=== PATIENT | male | born 1980 | race Caucasian/White ===

== ENCOUNTER 2021-01-14 10:29 | Emergency (ER) | payer SELFPAY ==
[~2021-01-14] VITALS: Ht 180 cm; Wt 81.6 kg
[~2021-01-14 10:29] MED LIST: TRM50T PO
--- NOTE | 2021-01-14 10:53 | ED Cardiac General ---
History of Present Illness General Chief Complaint: Cardiac/General Problems Stated Complaint: HIGH BP Nursing Triage Note: SENT OVER FROM [employer] D/T BP BEING HIGH Source: patient Exam Limitations: no limitations History of Present Illness Date Seen by Provider: Jan 14, 2021 Time Seen by Provider: 10:32 Initial Comments 40yoM with no significant PMH coming in due to an elevated BP. 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 Denies any symptoms at all including no chest pain, shortness of breath, abdominal pain, nausea, vomiting, diarrhea, fever, chills, weakness, numbness, vision changes, headaches, rash, or any other concerns. Does not have a primary care provider because he currently does not have insurance, and is hoping he will have insurance soon. Allergies and Home Medications Allergies Coded Allergies: No Known Drug Allergies (Unverified Allergy, Mild, 09/25/08) Patient Home Medication List Home Medication List Reviewed: Yes Amlodipine Besylate (Amlodipine Besylate) 5 Mg Tablet, 5 MG PO DAILY Prescribed by: LARISSA SULLIVAN on 01/14/21 1107 Tramadol Hcl (Ultram) 50 Mg Tablet, 1 TAB PO QID Prescribed by: STALIN ERICKSON on 09/25/08 6389 Review of Systems Review of Systems Constitutional: No chills, No fever EENTM: No Blurred Vision Respiratory: Denies Cough, Denies Shortness of Air Cardiovascular: Denies Chest Pain Gastrointestinal: Denies Abdominal Pain, Denies Constipated, Denies Diarrhea, Denies Nausea, Denies Vomiting Genitourinary: Denies Burning Musculoskeletal: no symptoms reported Skin: no symptoms reported Psychiatric/Neurological: No Symptoms Reported Endocrine: No Symptoms Reported Hematologic/Lymphatic: No Symptoms Reported All Other Systems Reviewed Negative Unless Noted: Yes Past Jcuyhks-Royesz-Lqymkn Hx Patient Social History Tobacco Use?: No Use of E-Cig and/or Vaping dev: Yes Substance use?: No Alcohol Use?: Yes Past Medical History Surgeries: No Physical Exam Vital Signs Vital Signs - First Documented 01/14/21 10:46 Temp 36.0 Pulse 111 Resp 16 B/P (MAP) 147/109 (122) Pulse Ox 98 Capillary Refill : Less Than 3 Seconds Height, Weight, BMI Height: '" Weight: lbs. oz. kg; 25.00 BMI Method: General Appearance: No Apparent Distress, WD/WN HEENT: PERRL/EOMI, Normal ENT Inspection, Pharynx Normal Neck: Full Range of Motion, Normal Inspection, Non Tender, Supple Respiratory: Chest Non Tender, Lungs Clear, Normal Breath Sounds, No Accessory Muscle Use, No Respiratory Distress Cardiovascular: Regular Rate, Rhythm, No Edema, Normal Peripheral Pulses Gastrointestinal: Normal Bowel Sounds, Non Tender, Soft; No Distended, No Guarding Extremity: Normal Capillary Refill, Normal Inspection, Normal Range of Motion, Non Tender, No Calf Tenderness, No Pedal Edema Neurologic/Psychiatric: Alert, No Motor/Sensory Deficits, Normal Mood/Affect Skin: Normal Color, Warm/Dry Lymphatic: No Adenopathy Progress/Results/Core Measures Results/Orders My Orders Orders - LARISSA SULLIVAN MD Ekg Tracing (01/14/21 11:03) Vital Signs/I&O 01/14/21 10:46 Temp 36.0 Pulse 111 Resp 16 B/P (MAP) 147/109 (122) Pulse Ox 98 Blood Pressure Mean: 122 Progress Progress Note : Progress Note 40-year-old male with above history coming in due to elevated blood pressure referred from occupational health. Patient says he was very nervous during that time his heart rate typically goes up. He was reportedly around 130 heart rate there, here he is right at 100. He says he still is nervous. No lack of p.o. intake and he has been tolerating everything well. Denying any symptoms at all so this is essentially asymptomatic hypertension. He does have a PCP so I will start him on some medications until he gets follow-up. I recommended [facility] given he does not have insurance. EKG without any acute ischemic changes. I believe he is stable for discharge with outpatient follow-up. He was sent home with strict return precautions peer Initial ECG Impression Date: Jan 14, 2021 Initial ECG Impression Time: 11:27 Initial ECG Rate: 88 Initial ECG Rhythm: Normal Sinus Comment Narrow QRS, borderline left axis deviation, no significant ST changes or T wave abnormalities Departure Impression Primary Impression: Asymptomatic hypertension Disposition: HOME, SELF-CARE Condition: Stable Departure-Patient Inst. Decision time for Depature: 11:15 Referrals: NO,LOCAL PHYSICIAN (PCP/Family) Primary Care Physician Patient Instructions: High Blood Pressure (DC) Add. Discharge Instructions: Please call [facility] and schedule an appointment, you do not have to have insurance to see them. I will start you on a blood pressure medicine that is low dose until you are able to follow-up. Symptoms are pretty low on this so it is typically pretty well-tolerated. Some people have some lower extremity swelling, so if you do have this you can stop it. I recommend you purchase a blood pressure cuff as well and take your blood pressure at least daily and write these numbers down. Do not fixate on these numbers, is just something you can take your primary care doctor so they can trend it. As always, if you have any chest pain, shortness of breath, weakness or numbness on one side of your body, worst headache of your life, or any other concerns then please come back t o the ER. Scripts Amlodipine Besylate (Amlodipine Besylate) 5 Mg Tablet 5 MG PO DAILY for 30 Days, #30 TAB Prov: LARISSA SULLIVAN MD 01/14/21 LARISSA SULLIVAN MD Jan 14, 2021 10:53
[2021-01-14] MEDS ORDERED: AMLO-250 PO (11:07)
[2021-01-14 11:45] VITALS: BP 138/103
== END 2021-01-14 11:47 | disposition home or self-care (01) ==
LOC: EDUNIT# 10:29 → ER 10:31
DX: I10 Essential (primary) hypertension (principal)
CPT/HCPCS: 93005

== ENCOUNTER 2022-06-26 12:04 | Emergency (ER) | payer SELFPAY ==
[~2022-06-26] VITALS: Ht 180 cm; Wt 90.0 kg
[~2022-06-26 12:04] MED LIST changes: +AMLO-250 PO
[2022-06-26] MEDS ORDERED: NS IV 1000 ML 1,000 ML IV STA (12:12)
[2022-06-26] MEDS ORDERED: KETOROLAC 30 MG/ML VIAL IVP ONE ×2 (12:15→13:30)
[2022-06-26] MEDS ORDERED: fentaNYL INJ 100 MCG/2 ML AMP IVP STA (12:16)
--- NOTE | 2022-06-26 12:21 | ED Abdominal Pain ---
General Chief Complaint: Abdominal/GI Problems Stated Complaint: ABDOMINAL PAIN Nursing Triage Note: ARRIVED VIA AMB TO ROOM 07 WITH RLQ PAIN THAT STARTED AT APPX 0400. Source of Information: Patient Exam Limitations: No Limitations (LARISSA OCAMPO) History of Present Illness Date Seen by Provider: June 26, 2022 Time Seen by Provider: 12:18 Initial Comments Patient is a 41-year-old male who presents ED with right-sided abdominal pain. Pain started around 4:00 this morning. Initially pain was sharp and has remained constant since this morning. Pain radiates to the right lower quadrant. Does have a pain to the right flank. Patient with associated chills. Did vomited 1 time as well as 1 loose stool. No history of previous abdominal surgery. Did drink some alcohol last night but denies of any alcohol today. Denies history of alcohol abuse. Normal urination without dysuria, hematuria, increased urine frequency. Denies chest pain, cough or shortness of breath. Patient denies fever, headache, dizziness, sore throat, ear pain, visual changes (LARISSA OCAMPO) Allergies and Home Medications Allergies Coded Allergies: No Known Drug Allergies (Unverified , 09/25/08) Patient Home Medication List Home Medication List Reviewed: Yes (LARISSA OCAMPO) Amlodipine Besylate (Amlodipine Besylate) 5 Mg Tablet, 5 MG PO DAILY Prescribed by: LARISSA SULLIVAN on 01/14/21 1107 Amoxicillin/Potassium Clav (Amox Tr-K Clv 875-125 mg Tab) 875 Mg-125 Mg Tablet, 1 EACH PO BID Prescribed by: FORTINO COLEMAN on 06/26/22 1328 Ondansetron (Ondansetron Odt) 4 Mg Tab.rapdis, 4 MG SL Q4H PRN for NAUSEA/VOMITING Prescribed by: FORTINO COLEMAN on 06/26/22 1328 Tramadol Hcl (Ultram) 50 Mg Tablet, 1 TAB PO QID Prescribed by: STALIN ERICKSON on 09/25/08 2029 Review of Systems Review of Systems Constitutional: No chills, No diaphoresis; malaise, weakness EENTM: No Double Vision, No Eye Pain Respiratory: Denies Cough Cardiovascular: Denies Chest Pain Gastrointestinal: Abdominal Pain, Diarrhea, Nausea, Vomiting Genitourinary: Denies Burning, Denies Discharge, Denies Drainage, Denies Frequency Musculoskeletal: back pain Skin: No change in color, No change in hair/nails (LARISSA OCAMPO) All Other Systems Reviewed Negative Unless Noted: Yes (LARISSA OCAMPO) Past Ehnlped-Orjbvq-Uqldmk Hx Immunizations Up To Date First/Initial COVID19 Vaccinat: APRIL 2020 Second COVID19 Vaccination Stefan: APRIL 2020 (LARISSA OCAMPO) Past Medical History Surgeries: No (LARISSA OCAMPO) Physical Exam Vital Signs Vital Signs - First Documented 06/26/22 12:10 Temp 35.6 Pulse 92 Resp 16 B/P (MAP) 143/102 (116) Pulse Ox 100 O2 Delivery Room Air (AGUSTÍN ISABEL MD) Vital Signs Capillary Refill : Less Than 3 Seconds (LARISSA OCAMPO) Height/Weight/BMI Height: '" Weight: lbs. oz. kg; 27.00 BMI Method: General Appearance: WD/WN, no apparent distress HEENT: PERRL/EOMI, normal ENT inspection, TMs normal, pharynx normal Neck: non-tender, full range of motion, supple Respiratory: chest non-tender, lungs clear, normal breath sounds, no respiratory distress, no accessory muscle use Cardiovascular: regular rate, rhythm, no edema, no gallop, no JVD Gastrointestinal: normal bowel sounds, soft, no organomegaly, tenderness (Right lower quadrant tenderness. Positive psoas sign. 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, no motor/sensory deficits, alert, normal mood/affect, oriented x 3 Skin: normal color, warm/dry (LARISSA OCAMPO) Progress/Results/Core Measures Results/Orders Lab Results Laboratory Tests Test 06/26/22 12:25 06/26/22 13:18 Range/Units White Blood Count 20.0 H 4.3-11.0 10^3/uL Red Blood Count 5.03 4.30-5.52 10^6/uL Hemoglobin 15.2 13.3-17.7 g/dL Hematocrit 43 40-54 % Mean Corpuscular Volume 85 80-99 fL Mean Corpuscular Hemoglobin 30 25-34 pg Mean Corpuscular Hemoglobin Concent 35 32-36 g/dL Red Cell Distribution Width 12.9 10.0-14.5 % Platelet Count 362 130-400 10^3/uL Mean Platelet Volume 10.5 9.0-12.2 fL Immature Granulocyte % (Auto) 0 % Neutrophils (%) (Auto) 85 H 42-75 % Lymphocytes (%) (Auto) 8 L 12-44 % Monocytes (%) (Auto) 6 0-12 % Eosinophils (%) (Auto) 0 0-10 % Basophils (%) (Auto) 0 0-10 % Neutrophils # (Auto) 17.0 H 1.8-7.8 10^3/uL Lymphocytes # (Auto) 1.7 1.0-4.0 10^3/uL Monocytes # (Auto) 1.2 H 0.0-1.0 10^3/uL Eosinophils # (Auto) 0.0 0.0-0.3 10^3/uL Basophils # (Auto) 0.1 0.0-0.1 10^3/uL Immature Granulocyte # (Auto) 0.1 0.0-0.1 10^3/uL Neutrophils % (Manual) 80 % Lymphocytes % (Manual) 13 % Monocytes % (Manual) 7 % Platelet Estimate ADEQUATE Blood Morphology Comment NORMAL Sodium Level 139 135-145 MMOL/L Potassium Level 3.8 3.6-5.0 MMOL/L Chloride Level 103 98-107 MMOL/L Carbon Dioxide Level 22 21-32 MMOL/L Anion Gap 14 5-14 MMOL/L Blood Urea Nitrogen 12 7-18 MG/DL Creatinine 0.94 0.60-1.30 MG/DL Estimat Glomerular Filtration Rate 105 BUN/Creatinine Ratio 13 Glucose Level 119 H 70-105 MG/DL Calcium Level 9.8 8.5-10.1 MG/DL Corrected Calcium 8.5-10.1 MG/DL Total Bilirubin 1.1 H 0.1-1.0 MG/DL Aspartate Amino Transf (AST/SGOT) 22 5-34 U/L Alanine Aminotransferase (ALT/SGPT) 33 0-55 U/L Alkaline Phosphatase 71 40-136 U/L Total Protein 7.5 6.4-8.2 GM/DL Albumin 4.6 H 3.2-4.5 GM/DL Lipase 25 8-78 U/L Urine Color YELLOW Urine Clarity CLEAR Urine pH 8.5 5-9 Urine Specific [place] 1.010 L 1.016-1.022 Urine Protein NEGATIVE NEGATIVE Urine Glucose (UA) NEGATIVE NEGATIVE Urine Ketones TRACE H NEGATIVE Urine Nitrite NEGATIVE NEGATIVE Urine Bilirubin NEGATIVE NEGATIVE Urine Urobilinogen 0.2 < = 1.0 MG/DL Urine Leukocyte Esterase NEGATIVE NEGATIVE Urine RBC (Auto) NEGATIVE NEGATIVE Urine RBC RARE /HPF Urine WBC NONE /HPF Urine Crystals NONE /LPF Urine Bacteria NEGATIVE /HPF Urine Casts NONE /LPF Urine Mucus NEGATIVE /LPF Urine Culture Indicated NO (AGUSTÍN ISABEL MD) Vital Signs/I&O 06/26/22 06/26/22 12:10 14:09 Temp 35.6 Pulse 92 94 Resp 16 16 B/P (MAP) 143/102 (116) 159/98 Pulse Ox 100 97 O2 Delivery Room Air Room Air (AGUSTÍN ISABEL MD) Blood Pressure Mean: 116 Departure Communication (PCP) Reviewed previous ER visits, H&P, lab testing. acute onset of right-sided abdominal pain around 4:00 this morning. Started in the right upper quadrant radiate to the right lower quadrant with some pain in the right flank. No history of previous abdominal surgery. Patient diaphoretic on arrival. Tenderness to the right side of his abdomen, worse to the right lower quadrant. CBC, CMP, lipase, urinalysis was ordered. Differential diagnosis of appendicitis, nephrolithiasis, urolithiasis, cystitis, colitis. Denies of any scrotum pain, scrotum swelling or urinary symptoms. Started on a liter of fluid and was given IV fentanyl 50 mcg. Patient urinalysis was negative for infection. Patient white blood count 20. Chemistry unremarkable. Due to location of pain CT abdomen and pelvis was ordered to rule out any surgical abdomen such as appendicitis. CT abdomen pelvis shows mesenteric adenitis. No evidence of appendicitis. Unusual at his age to have mesenteric adenitis. Other potential concerns would be early appendicitis however no evidence at this time on imaging. Due to elevated white blood count and patient pain will discharge with Augmentin prophylactically to cover a early appendicitis. Discussed with patient that antibiotics are given for appendicitis and can resolve symptoms. Did reassess the abdomen with improvement of pain. He felt like the pain was more in his right upper quadrant at discharge There is no evidence of nephrolithiasis or ureterolithiasis. No chest pain or shortness of breath. Symptoms appear to be improving. States he is able to rest comfortably at this time. Recommend Tylenol or ibuprofen at home. I do not want to give narcotics to mask pain. Discussed liquid diet for the next 2 or 3 days. Did have some vomiting and diarrhea today which may suggest a GI process. Denies eating anything differently. No recent travels. Denies of any recent antibiotic use. No history inflammatory bowel disease. Patient symptoms continue improved. Discharge with outpatient follow-up with primary care physician in 2 days. If worsening pain in the right lower quadrant, fever, vomiting to return back to ED. (LARISSA OCAMPO) Impression Primary Impression: Mesenteric adenitis Disposition: HOME, SELF-CARE Condition: Stable Departure-Patient Inst. Decision time for Depature: 13:26 (LARISSA OCAMPO) Referrals: [facility]/BRAYDON COFFEY MD NO,LOCAL PHYSICIAN (PCP) Primary Care Physician Patient Instructions: Mesenteric Lymphadenitis Add. Discharge Instructions: Will discharge with Augmentin for a potential early appendicitis. Recommend taking probiotics [id number] to prevent any other associated GI infection. Zofran for nausea. If increasing pain, fever, vomiting need to return back to ED. Follow-up with your PCP in 2 days for reevaluation. Tylenol or ibuprofen for pain All discharge instructions reviewed with patient and/or family. Voiced understanding. Scripts Ondansetron (Ondansetron Odt) 4 Mg Tab.rapdis 4 MG SL Q4H PRN for NAUSEA/VOMITING, #6 TAB Prov: LARISSA OCAMPO 06/26/22 Amoxicillin/Potassium Clav (Amox Tr-K Clv 875-125 mg Tab) 875 Mg-125 Mg Tablet 1 EACH PO BID for 7 Days, #14 TAB Prov: LARISSA OCAMPO 06/26/22 ATTENDING PHYSICIAN NOTE: I was physically present as attending physician in the emergency department during the care of this patient, but I was not directly involved in the decision making or delivery of care for this patient. (AGUSTÍN ISABEL MD) LARISSA OCAMPO June 26, 2022 12:21 AGUSTÍN ISABEL MD June 27, 2022 08:57
[2022-06-26 12:36] LABS: BASOPHILS # (AUTO) 0.1 10^3/uL (0.0-0.1); BASOPHILS % (AUTO) 0 % (0-10); EOSINOPHILS % (AUTO) 0 % (0-10); HEMATOCRIT 43 % (40-54); HEMOGLOBIN 15.2 g/dL (13.3-17.7); LYMPHOCYTES # (AUTO) 1.7 10^3/uL (1.0-4.0); LYMPHOCYTES % (AUTO) 8 % (12-44); MEAN CORPUSCULAR HEMOGLOBIN 30 pg (25-34); MEAN CORPUSCULAR HGB CONC 35 g/dL (32-36); MEAN CORPUSCULAR VOLUME 85 fL (80-99); MEAN PLATELET VOLUME 10.5 fL (9.0-12.2); MONOCYTES # (AUTO) 1.2 10^3/uL (0.0-1.0); MONOCYTES % (AUTO) 6 % (0-12); NEUTROPHILS % (AUTO) 85 % (42-75); PLATELET COUNT 362 10^3/uL (130-400)
[2022-06-26 12:42] LABS: ALBUMIN 4.6 GM/DL (3.2-4.5); CHLORIDE 103 MMOL/L (98-107); POTASSIUM 3.8 MMOL/L (3.6-5.0); SODIUM 139 MMOL/L (135-145)
[2022-06-26 12:44] LABS: CALCIUM 9.8 MG/DL (8.5-10.1)
[2022-06-26 12:45] LABS: GLUCOSE 119 MG/DL (70-105); TOTAL PROTEIN 7.5 GM/DL (6.4-8.2)
[2022-06-26] MEDS ORDERED: HOLD METFORMIN - RECEIVED CONTRAST 20 ML VIAL IV SCH (12:45)
[2022-06-26] MEDS ORDERED: IOHEXOL 350 MG/ML 100 ML (OMNIPAQUE 350) VIAL IV ONE (12:45)
[2022-06-26] MEDS ORDERED: NS 100 ML (IVPB) BAG IV ONE (12:45)
[2022-06-26 12:46] LABS: CARBON DIOXIDE 22 MMOL/L (21-32)
[2022-06-26 12:47] LABS: BILIRUBIN,TOTAL 1.1 MG/DL (0.1-1.0); LYMPHOCYTES % (MANUAL) 13 %; MONOCYTES % (MANUAL) 7 %; NEUTROPHILS % (MANUAL) 80 %; PLATELET ESTIMATE ADEQUATE; RBC MORPH NORMAL
[2022-06-26 12:48] LABS: ALKALINE PHOSPHATASE 71 U/L (40-136); CREATININE SERUM 0.94 MG/DL (0.60-1.30); GFR ESTIMATED 105
[2022-06-26 12:49] LABS: BUN/CREATININE RATIO 13
[2022-06-26 12:51] LABS: ALANINE AMINOTRANSFERASE 33 U/L (0-55)
[2022-06-26 12:52] LABS: LIPASE 25 U/L (8-78)
--- NOTE | 2022-06-26 13:12 | Diagnostic Imaging Report ---
PROCEDURE: CT abdomen and pelvis with contrast, rule out appendicitis. TECHNIQUE: Multiple contiguous axial images were obtained through the abdomen and pelvis after the administration of intravenous contrast. All CT scans use one or more of the following dose optimizing techniques: automated exposure control, MA and/or KvP adjustment based on patient size and exam type or iterative reconstruction. INDICATION: Right lower quadrant pain. FINDINGS: The heart size is normal. The lung bases are clear. There appears to be some mild fatty infiltration of the liver. Gallbladder is unremarkable. No biliary duct dilatation. Spleen is normal. The pancreas and adrenal glands are unremarkable. Kidneys normal in appearance. Aorta is nonaneurysmal. The bowel gas pattern is nonspecific. The appendix appears to be mildly enlarged but patent. There are some shoddy adenopathy in the right lower quadrant. There is no free air. There is no ascites. There are no focal inflammatory changes. Bladder is normal. There is no pelvic mass, adenopathy or free fluid. There is some degenerative disc disease at L5-S1. IMPRESSION: Scattered mildly enlarged lymph nodes in the right lower quadrant possibly reflecting mesenteric adenitis. There is no definitive CT evidence of appendicitis. Mild fatty infiltration of the liver. Degenerative disc disease at L5-S1 No other acute abnormality in the abdomen or pelvis. Dictated by: Dictated on workstation # [id number]
[2022-06-26] MEDS ORDERED: AMOX1TAB12 PO (13:28)
[2022-06-26] MEDS ORDERED: ONDA4TAB11 SL (13:28)
[2022-06-26 13:33] LABS: BILIRUBIN,URINE NEGATIVE (NEGATIVE); CLARITY,URINE CLEAR; COLOR,URINE YELLOW; GLUCOSE, URINE (UA) NEGATIVE (NEGATIVE); KETONES,URINE TRACE (NEGATIVE); LEUKOCYTE ESTERASE ,URINE NEGATIVE (NEGATIVE); NITRITE,URINE NEGATIVE (NEGATIVE); PH,URINE 8.5 (5-9); PROTEIN,URINE NEGATIVE (NEGATIVE)
[2022-06-26 13:49] LABS: BACTERIA,URINE NEGATIVE /HPF; RBC,URINE RARE /HPF
[2022-06-26 14:09] VITALS: BP 159/98
[2022-06-27] MEDS ORDERED: HYDR-3817 PO (21:43)
== END 2022-06-26 14:09 | disposition home or self-care (01) ==
LOC: EDUNIT# 12:04 → ER 12:07
DX: I88.0 Nonspecific mesenteric lymphadenitis (principal)
CPT/HCPCS: 36415; 74177; 80053; 81000; 83690; 85007; 85027

== ENCOUNTER 2022-06-27 15:00 | Observation (INO) | payer SELFPAY ==
[~2022-06-27] VITALS: Ht 180 cm; Wt 89.3 kg
[~2022-06-27 15:00] MED LIST changes: +AMOX1TAB12 PO; +ONDA4TAB11 SL
[2022-06-27] MEDS ORDERED: fentaNYL INJ 100 MCG/2 ML AMP IVP ONE ×2 (15:15→16:45)
[2022-06-27] MEDS ORDERED: NS IV 1000 ML 1,000 ML IV SCH (15:15)
--- NOTE | 2022-06-27 15:15 | ED Abdominal Pain ---
General Chief Complaint: Abdominal/GI Problems Stated Complaint: ABDOMINAL PAIN Nursing Triage Note: PT STATES RLQ PAIN, WAS SEEN HERE YESTERDAY FOR THE SAME. WAS STARTED ON ABX. TYLENOL 5 HRS AGO NO OTHER PAIN MEDS, BM THIS MORNING, FEELS BLOATED Source of Information: Patient Exam Limitations: No Limitations History of Present Illness Date Seen by Provider: June 27, 2022 Time Seen by Provider: 15:07 Initial Comments 41-year-old male presents to the ER with complaints of right lower quadrant abdominal pain. He was seen yesterday for same complaint. He states that today the pain is worse than yesterday. He states the pain is mostly in the right lower quadrant, but radiates to the right upper quadrant and left lower quadrant. He reports subjective fevers and chills. States he was nauseated yesterday, denies any nausea today. Denies diarrhea, states he last had a small bowel movement this morning. Denies dysuria and hematuria. He was started on Augmentin for the possible beginning of appendicitis. Patient states he did start this. He was also prescribed Zofran, states he has not had to take any today. He denies any past abdominal surgeries. Allergies and Home Medications Allergies Coded Allergies: No Known Drug Allergies (Unverified , 09/25/08) Patient Home Medication List Home Medication List Reviewed: Yes Amlodipine Besylate (Amlodipine Besylate) 5 Mg Tablet, 5 MG PO DAILY Prescribed by: LARISSA SULLIVAN on 01/14/21 1107 Amoxicillin/Potassium Clav (Amox Tr-K Clv 875-125 mg Tab) 875 Mg-125 Mg Tablet, 1 EACH PO BID Prescribed by: FORTINO COLEMAN on 06/26/22 1328 Ondansetron (Ondansetron Odt) 4 Mg Tab.rapdis, 4 MG SL Q4H PRN for N AUSEA/VOMITING Prescribed by: FORTINO COLEMAN on 06/26/22 1328 Tramadol Hcl (Ultram) 50 Mg Tablet, 1 TAB PO QID Prescribed by: STALIN ERICKSON on 09/25/08 0181 Review of Systems Review of Systems Constitutional: see HPI Past Nqsrwzt-Buoadq-Mifdso Hx Patient Social History Tobacco Use?: No Use of E-Cig and/or Vaping dev: Yes E-Cig or Vaping type used: Nicotine Substance use?: No Alcohol Use?: Yes Immunizations Up To Date First/Initial COVID19 Vaccinat: APRIL 2020 Second COVID19 Vaccination Stefan: YES Past Medical History Surgery/Hospitalization HX: LT KNEE WITH HARDWARE Surgeries: No Physical Exam Vital Signs Vital Signs - First Documented 06/27/22 15:06 Temp 36.9 Pulse 95 Resp 22 B/P (MAP) 110/89 (96) Pulse Ox 100 O2 Delivery Room Air Capillary Refill : Less Than 3 Seconds Height/Weight/BMI Height: '" Weight: lbs. oz. kg; 27.00 BMI Method: General Appearance: WD/WN, no apparent distress Neck: supple, normal inspection Respiratory: lungs clear Cardiovascular: regular rate, rhythm Gastrointestinal: normal bowel sounds, distended, guarding, tenderness (Severe tenderness right lower quadrant, palpation of left lower quadrant causes pain in right lower quadrant) Extremities: normal inspection Neurologic/Psychiatric: alert, normal mood/affect Skin: normal color, warm/dry Progress/Results/Core Measures Results/Orders Lab Results Laboratory Tests Test 06/27/22 15:09 Range/Units White Blood Count 21.2 H 4.3-11.0 10^3/uL Red Blood Count 4.73 4.30-5.52 10^6/uL Hemoglobin 14.3 13.3-17.7 g/dL Hematocrit 42 40-54 % Mean Corpuscular Volume 89 80-99 fL Mean Corpuscular Hemoglobin 30 25-34 pg Mean Corpuscular Hemoglobin Concent 34 32-36 g/dL Red Cell Distribution Width 13.2 10.0-14.5 % Platelet Count 349 130-400 10^3/uL Mean Platelet Volume 10.5 9.0-12.2 fL Immature Granulocyte % (Auto) 0 % Neutrophils (%) (Auto) 88 H 42-75 % Lymphocytes (%) (Auto) 8 L 12-44 % Monocytes (%) (Auto) 4 0-12 % Eosinophils (%) (Auto) 0 0-10 % Basophils (%) (Auto) 0 0-10 % Neutrophils # (Auto) 18.7 H 1.8-7.8 X 10^3 Lymphocytes # (Auto) 1.6 1.0-4.0 X 10^3 Monocytes # (Auto) 0.9 0.0-1.0 X 10^3 Eosinophils # (Auto) 0.0 0.0-0.3 10^3/uL Basophils # (Auto) 0.0 0.0-0.1 10^3/uL Immature Granulocyte # (Auto) 0.0 0.0-0.1 10^3/uL Neutrophils % (Manual) 88 % Lymphocytes % (Manual) 4 % Monocytes % (Manual) 3 % Reactive Lymphocytes 5 % Blood Morphology Comment NORMAL Sodium Level 138 135-145 MMOL/L Potassium Level 3.7 3.6-5.0 MMOL/L Chloride Level 103 98-107 MMOL/L Carbon Dioxide Level 20 L 21-32 MMOL/L Anion Gap 15 H 5-14 MMOL/L Blood Urea Nitrogen 9 7-18 MG/DL Creatinine 0.95 0.60-1.30 MG/DL Estimat Glomerular Filtration Rate 104 BUN/Creatinine Ratio 9 Glucose Level 131 H 70-105 MG/DL Calcium Level 9.7 8.5-10.1 MG/DL Corrected Calcium 9.3 8.5-10.1 MG/DL Total Bilirubin 1.0 0.1-1.0 MG/DL Aspartate Amino Transf (AST/SGOT) 16 5-34 U/L Alanine Aminotransferase (ALT/SGPT) 25 0-55 U/L Alkaline Phosphatase 77 40-136 U/L C-Reactive Protein High Sensitivity 33.84 H 0.00-0.50 MG/DL Total Protein 7.7 6.4-8.2 GM/DL Albumin 4.5 3.2-4.5 GM/DL Amylase Level 33 25-125 U/L Lipase 20 8-78 U/L My Orders Orders - DEANNA EUBANKS APRN Comprehensive Metabolic Panel (06/27/22 15:07) Lipase (06/27/22 15:07) Amylase (06/27/22 15:07) Ua Culture If Indicated (06/27/22 15:07) Cbc With Automated Diff (06/27/22 15:07) Hs C Reactive Protein (06/27/22 15:07) Ed Iv/Invasive Line Start (06/27/22 15:08) Ns Iv 1000 Ml (Sodium Chloride 0.9%) (06/27/22 15:15) Fentanyl Inj (Sublimaze Injection) (06/27/22 15:15) Manual Differential (06/27/22 15:09) Ct Abd/Pelv W (Appendicitis) (06/27/22 15:46) Iohexol Injection (Omnipaque 350 Mg/Ml 1 (06/27/22 16:15) Received Contrast (Hold Metformin- Contr (06/27/22 16:15) Ns (Ivpb) (Sodium Chloride 0.9% Ivpb Bag (06/27/22 16:15) Fentanyl Inj (Sublimaze Injection) (06/27/22 16:45) Hydromorphone Injection (Dilaudid Inject (06/27/22 17:30) Piperacillin Sodium/Tazobactam (Zosyn Vi (06/27/22 17:30) Ed Admission (Communication) (06/27/22 17:29) Medications Given in ED Current Medications Medications Dose Ordered Sig/Marlys Route Start Time Stop Time Status Last Admin Dose Admin Fentanyl Citrate 50 mcg ONCE ONCE IVP 06/27/22 15:15 06/27/22 15:16 DC 06/27/22 15:20 50 MCG Fentanyl Citrate 50 mcg ONCE ONCE IVP 06/27/22 16:45 06/27/22 16:46 DC 06/27/22 16:36 50 MCG Hydromorphone HCl 0.5 mg ONCE ONCE IV 06/27/22 17:30 06/27/22 17:31 DC 06/27/22 17:33 0.5 MG Iohexol 100 ml ONCE ONCE IV 06/27/22 16:15 06/27/22 16:16 DC 06/27/22 16:07 80 ML Piperacillin Sod/ Tazobactam Sod 4.5 gm/Sodium Chloride 100 ml @ 200 mls/hr ONCE ONCE IV 06/27/22 17:30 06/27/22 17:59 DC 06/27/22 17:46 200 MLS/HR Sodium Chloride 100 ml ONCE ONCE IV 06/27/22 16:15 06/27/22 16:16 DC 06/27/22 16:08 80 ML Vital Signs/I&O 06/27/22 06/27/22 06/27/22 06/27/22 15:06 15:43 16:31 17:49 Temp 36.9 Pulse 95 89 104 94 Resp 22 18 B/P (MAP) 110/89 (96) 107/82 (90) 114/89 (97) Pulse Ox 100 98 100 98 O2 Delivery Room Air Room Air Room Air Room Air Blood Pressure Mean: 96 Progress Progress Note : Progress Note Patient seen and evaluated, lying in bed, moderate distress. Based on exam and symptoms, work-up initiated including CBC, CMP, amylase, lipase, UA. IV fluids and fentanyl ordered. Patient had a CT scan yesterday, will hold off on rescanning him at this time. 1546 CBC shows elevated WBC 21.2, up from 20.0 yesterday. Neutrophil percentage elevated at 88 up from 85 yesterday. CMP shows slightly decreased CO2 20, slig htly elevated anion gap 15, glucose 131. CRP elevated at 33.84. CT abdomen pelvis ordered due to worsening labs. 1655 CT reviewed. It now shows appendicitis with associated appendicoliths, periapical appendiceal stranding, edema, and dilation of the appendix with new pelvic free fluid. Also a mild regional ileus, no batsheva obstruction. CT also shows left lower thoracic paraspinal mass. They recommend a formal CT chest to evaluate this. The CT also shows fluid in the gallbladder that may be related to yesterday's contrast load. I called and spoke with Dr. Damian, surgery, regarding patient. He will admit patient and perform appendectomy tomorrow afternoon. He would like patient to be on clear liquids until 7 AM then n.p.o. He would like PRN pain medications as well as antibiotics. Bridge orders were placed. Patient has been unable to provide urine sample in the ER. I also spoke with Dr. Damian about the paraspinal mass, he wanted a CT of the chest with and without contrast, but will defer due to patient having to CTs with contrast over the last 2 days. Diagnostic Imaging Diagonstic Imaging: CT Plain Films/CT/US/NM/MRI: abdomen, pelvis Comments [facility], [facility]. [place], [place] NAME: FABIAN CHAVARRIA [facility] REC#: [id number] PT STATUS: REG ER : 1980 PHYSICIAN: DEANNA EUBANKS APRN ADMIT DATE: 06/27/22/ER Signed Date of Exam:06/27/22 CT ABD/PELV W (APPENDICITIS) PROCEDURE: CT abdomen and pelvis with contrast, rule out appendicitis. TECHNIQUE: Multiple contiguous axial images were obtained through the abdomen and pelvis after the administration of intravenous contrast. All CT scans use one or more of the following dose optimizing techniques: automated exposure control, MA and/or KvP adjustment based on patient size and exam type or iterative reconstruction. INDICATION: Right lower quadrant pain. COMPARISON: Exam of one day prior. FINDINGS: The appendix arises off the anterior right lateral wall of the cecum, distally. It is directed posterolaterally and inferiorly and has intraluminal hyperdensities consistent with appendicoliths. The appendix is now dilated with stranding and edema of the periappendiceal fat and the appearance is most consistent with acute appendicitis. Outer wall to outer wall diameter maximal 14 mm. There is no free air. There is a small amount of pelvic free fluid having developed, greatest in the right lower quadrant. No abscess or drainable collection. The right lower quadrant small bowel, fluid-containing and mildly ectatic, likely reflects a mild regional ileus. No overt obstruction and no free air. No acute biliary pathology, however, dependent hyperdensity within the gallbladder lumen forms and unsharp fluid fluid level. This is likely some residual vicarious excretion of contrast from yesterday's load as opposed to interval appearance of sludge. The adrenals and pancreas negative. The kidneys are unobstructed. There is no abdominopelvic, mesenteric or retroperitoneal adenopathy. The urinary bladder unremarkable. No acute or suspect bony pathology. At the top of the [id number] of the exam today and above the levels obtained on yesterday's CT we now note a somewhat lobulated hyperenhancing mass effect abutting the pleura and mediastinal interface left paraspinal and posterior to the aorta at the level of T8. This mass measures at least 3.3 x 2.0 cm transverse and is presumed to extend above the field of view. It is of uncertain etiology but warrants a formal chest CT as further evaluation to see its extent and entirety and to see if it involves the neural foramina or if there are other lesions present. IMPRESSION: 1. We now see convincing evidence of acute appendicitis with associated appendicoliths, periappendiceal stranding, edema and dilatation of the appendix with new pelvic free fluid. No abscess or loculated collection and there is no free intraperitoneal air. Mild regional ileus is noted but no batsheva obstruction. 2. Left lower thoracic paraspinal mass was above the field of view from yesterday's study and it is of uncertain etiology and significance. Formal chest CT recommended as further characterization. 3. Fluid fluid level in the gallbladder is believed incidental vicarious excretion of yesterday's contrast load. Dictated by: Dictated on workstation # [id number] Dict: 06/27/22 1613 Trans: 06/27/22 1705 PJE [id number] Interpreted by: RASHEL PATEL Electronically signed by: RASHEL PATEL 06/27/221704 Departure Impression Primary Impression: Appendicitis Qualified Codes: K35.80 - Unspecified acute appendicitis Additional Impression: Paraspinal mass Disposition: ADMITTED INPATIENT Condition: Stable Admissions Decision to Admit Reason: Admit from ER (General) Decision to Admit/Date: June 27, 2022 Time/Decision to Admit Time: 16:50 Departure-Patient Inst. Referrals: NO,LOCAL PHYSICIAN (PCP/Family) Primary Care Physician DEANNA EUBANKS APRN June 27, 2022 15:15
[2022-06-27 15:16] LABS: BASOPHILS % (AUTO) 0 % (0-10); EOSINOPHILS % (AUTO) 0 % (0-10); HEMATOCRIT 42 % (40-54); HEMOGLOBIN 14.3 g/dL (13.3-17.7); LYMPHOCYTES # (AUTO) 1.6 X 10^3 (1.0-4.0); LYMPHOCYTES % (AUTO) 8 % (12-44); MEAN CORPUSCULAR HEMOGLOBIN 30 pg (25-34); MEAN CORPUSCULAR HGB CONC 34 g/dL (32-36); MEAN CORPUSCULAR VOLUME 89 fL (80-99); MEAN PLATELET VOLUME 10.5 fL (9.0-12.2); MONOCYTES # (AUTO) 0.9 X 10^3 (0.0-1.0); MONOCYTES % (AUTO) 4 % (0-12); NEUTROPHILS # (AUTO) 18.7 X 10^3 (1.8-7.8); NEUTROPHILS % (AUTO) 88 % (42-75); PLATELET COUNT 349 10^3/uL (130-400); WHITE BLOOD COUNT 21.2 10^3/uL (4.3-11.0)
[2022-06-27 15:25] LABS: ALBUMIN 4.5 GM/DL (3.2-4.5); POTASSIUM 3.7 MMOL/L (3.6-5.0)
[2022-06-27 15:27] LABS: CALCIUM 9.7 MG/DL (8.5-10.1)
[2022-06-27 15:28] LABS: TOTAL PROTEIN 7.7 GM/DL (6.4-8.2)
[2022-06-27 15:32] LABS: CREATININE SERUM 0.95 MG/DL (0.60-1.30)
[2022-06-27 16:01] LABS: LYMPHOCYTES % (MANUAL) 4 %; MONOCYTES % (MANUAL) 3 %; NEUTROPHILS % (MANUAL) 88 %
[2022-06-27 16:02] LABS: RBC MORPH NORMAL; REACTIVE LYMPHOCYTES 5 %
[2022-06-27] MEDS ORDERED: NS 100 ML (IVPB) BAG IV ONE (16:15)
[2022-06-27] MEDS ORDERED: HOLD METFORMIN - RECEIVED CONTRAST 20 ML VIAL IV SCH (16:15)
[2022-06-27] MEDS ORDERED: IOHEXOL 350 MG/ML 100 ML (OMNIPAQUE 350) VIAL IV ONE (16:15)
--- NOTE | 2022-06-27 16:48 | Diagnostic Imaging Report ---
PROCEDURE: CT abdomen and pelvis with contrast, rule out appendicitis. TECHNIQUE: Multiple contiguous axial images were obtained through the abdomen and pelvis after the administration of intravenous contrast. All CT scans use one or more of the following dose optimizing techniques: automated exposure control, MA and/or KvP adjustment based on patient size and exam type or iterative reconstruction. INDICATION: Right lower quadrant pain. COMPARISON: Exam of one day prior. FINDINGS: The appendix arises off the anterior right lateral wall of the cecum, distally. It is directed posterolaterally and inferiorly and has intraluminal hyperdensities consistent with appendicoliths. The appendix is now dilated with stranding and edema of the periappendiceal fat and the appearance is most consistent with acute appendicitis. Outer wall to outer wall diameter maximal 14 mm. There is no free air. There is a small amount of pelvic free fluid having developed, greatest in the right lower quadrant. No abscess or drainable collection. The right lower quadrant small bowel, fluid-containing and mildly ectatic, likely reflects a mild regional ileus. No overt obstruction and no free air. No acute biliary pathology, however, dependent hyperdensity within the gallbladder lumen forms and unsharp fluid fluid level. This is likely some residual vicarious excretion of contrast from yesterday's load as opposed to interval appearance of sludge. The adrenals and pancreas negative. The kidneys are unobstructed. There is no abdominopelvic, mesenteric or retroperitoneal adenopathy. The urinary bladder unremarkable. No acute or suspect bony pathology. At the top of the [id number] of the exam today and above the levels obtained on yesterday's CT we now note a somewhat lobulated hyperenhancing mass effect abutting the pleura and mediastinal interface left paraspinal and posterior to the aorta at the level of T8. This mass measures at least 3.3 x 2.0 cm transverse and is presumed to extend above the field of view. It is of uncertain etiology but warrants a formal chest CT as further evaluation to see its extent and entirety and to see if it involves the neural foramina or if there are other lesions present. IMPRESSION: 1. We now see convincing evidence of acute appendicitis with associated appendicoliths, periappendiceal stranding, edema and dilatation of the appendix with new pelvic free fluid. No abscess or loculated collection and there is no free intraperitoneal air. Mild regional ileus is noted but no batsheva obstruction. 2. Left lower thoracic paraspinal mass was above the field of view from yesterday's study and it is of uncertain etiology and significance. Formal chest CT recommended as further characterization. 3. Fluid fluid level in the gallbladder is believed incidental vicarious excretion of yesterday's contrast load. Dictated by: Dictated on workstation # [id number]
[2022-06-27] MEDS ORDERED: PIPERACILLIN SODIUM/TAZOBACTAM 4.5 GM in NS (IVPB) 100 ML IV ONE (17:30)
[2022-06-27] MEDS ORDERED: HYDROmorphone 2 MG/ML VIAL (DILAUDID) IV ONE (17:30)
[2022-06-27] MEDS ORDERED: HYDROmorphone 2 MG/ML VIAL (DILAUDID) IV PRN ×2 (18:15→20:30)
[2022-06-27 18:25] VITALS: BP 139/95
[2022-06-27] MEDS ORDERED: fentaNYL INJ 100 MCG/2 ML AMP ONE (18:29)
[2022-06-27] MEDS: fentaNYL INJ 100 MCG/2 ML AMP IVP PRN ×3 (18:33→23:50)
[2022-06-27] MEDS: NS IV 1000 ML 1,000 ML IV SCH (18:33)
[2022-06-27] MEDS ORDERED: HYDROmorphone 2 MG/ML VIAL (DILAUDID) ONE (19:42)
[2022-06-27 19:46] VITALS: BP 138/95
[2022-06-27] MEDS ORDERED: ONDANSETRON 4 MG/2 ML (SDV) Z0FRAN ONE (19:52)
[2022-06-27] MEDS: ONDANSETRON 4 MG/2 ML (SDV) Z0FRAN IVP PRN (19:53)
[2022-06-27 20:00] VITALS: BP 131/89
[2022-06-27] MEDS ORDERED: HYDR-3817 PO (21:43)
--- NOTE | 2022-06-27 21:43 | Discharge Inst-Surgical ---
D/C Lap Instructions-BROOKE New, Converted, or Re-Newed RX: RX on Chart Follow Up Appt in 2 weeks Activity as tolerated No driving for 24 hours No driving while on pain medications Incentive Spirometry use every 2 hours while awake Regular Diet Symptoms to Report: Fever over 101 degree F, Nausea/Vomiting Infection Signs and Symptoms to report: Increased redness, Foul odor of wound, Increased drainage Bathing instructions: May shower Operative Area Clean/Dry; Keep incision clean/dry If any problems/questions: Contact your physician or go to Emergency Room BRAYDON COX MD June 27, 2022 21:43
--- NOTE | 2022-06-27 21:44 | Progress Note-Pre Operative ---
Pre-Operative Progress Note Date of Available H&P: June 27, 2022 Date H&P Reviewed: June 27, 2022 Time H&P Reviewed: 22:00 History & Physical: No changes noted Pre-Operative Diagnosis: acute appendicitis BRAYDON COX MD June 27, 2022 21:44
[2022-06-27] MEDS ORDERED: HYDROcodone/APAP 7.5 MG/325 MG (LORTAB, LORCET PLUS) TABLET PO PRN (21:45)
--- NOTE | 2022-06-27 22:26 | HISTORY AND PHYSICAL ---
The patient is a 41-year-old male who initially presented to the emergency department 1 day previous for right lower abdominal quadrant pain. CT scan was performed, which did not show any abnormalities and the working diagnosis was mesenteric adenopathy. He was started on Augmentin. He reports that the pain persisted and then worsened over time. He also had reported some nausea; however, no vomiting. He also reports that he may have had some mild fevers at home. On today's CT scan, there was inflammation of the appendix consistent with a noncomplicated appendicitis. PAST MEDICAL HISTORY: Hypertension. PAST SURGERIES: Left knee arthroscopy. ALLERGIES: NO KNOWN DRUG ALLERGIES. MEDICATIONS: Amlodipine 5 mg daily, Augmentin 875 mg b.i.d., Zofran p.r.n., tramadol 50 mg q.i.d. p.r.n. SOCIAL HISTORY: Positive smoke, positive alcohol. FAMILY HISTORY: Noncontributory. VITAL SIGNS: Temperature 36.9, blood pressure 110/89, pulse 95, respirations 20, pulse ox 100% on room air. REVIEW OF SYSTEMS: This is a well-nourished male, currently in no acute distress. He is not experiencing shortness of breath or difficulty breathing. No chest pain, palpitations, diaphoresis. Intermittent nausea, no vomiting. Does not report any change in bowel habits. No red blood per rectum, no dark tarry stools. Possible fever and chills at home. No recent inadvertent weight loss. All other review of systems negative. PHYSICAL EXAMINATION: Will be evaluated in the a.m. The majority of information was accrued by the emergency room physician as well as the patient's electronic medical records. LABORATORY DATA: WBC 21.2, hemoglobin 14.3, hematocrit 42, platelets 349. BUN 9, creatinine 0.95. ASSESSMENT AND PLAN: A 41-year-old male with a noncomplicated appendicitis. The natural history of this disease process will be explained to the patient as well as the need for diagnostic laparoscopy and appendectomy, which we will schedule on this admission. For now, we will continue with IV hydration as well as IV antibiotics and pain control as necessary. Job ID: [id number] DocumentID: [id number] Dictated Date: 06/27/2022 21:58:45 Sawmill Equipment Operator Date: 06/27/2022 22:24:00 Dictated By: BRAYDON COX MD
[2022-06-27] MEDS: PIPERACILLIN SODIUM/TAZOBACTAM 4.5 GM in NS (IVPB) 100 ML IV SCH (23:49)
[2022-06-28] VITALS (17 sets, daily range): BP systolic 114–147; BP diastolic 66–99
[2022-06-28] MEDS: NICOTINE 14 MG (NICODERM) PATCH TD SCH ×2 (00:23→07:34)
[2022-06-28] MEDS: HYDROmorphone 2 MG/ML VIAL (DILAUDID) IV PRN ×5 (01:46→21:24)
[2022-06-28] MEDS: fentaNYL INJ 100 MCG/2 ML AMP IVP PRN ×4 (04:00→17:20)
[2022-06-28] MEDS: NS IV 1000 ML 1,000 ML IV SCH ×3 (04:00→23:18)
[2022-06-28] MEDS: ONDANSETRON 4 MG/2 ML (SDV) Z0FRAN IVP PRN ×2 (05:04→07:33)
[2022-06-28 05:37] LABS: BASOPHILS % (AUTO) 0 % (0-10); EOSINOPHILS # (AUTO) 0.2 10^3/uL (0.0-0.3); EOSINOPHILS % (AUTO) 1 % (0-10); HEMATOCRIT 41 % (40-54); LYMPHOCYTES # (AUTO) 1.4 10^3/uL (1.0-4.0); LYMPHOCYTES % (AUTO) 7 % (12-44); MEAN CORPUSCULAR HEMOGLOBIN 30 pg (25-34); MEAN CORPUSCULAR HGB CONC 34 g/dL (32-36); MEAN CORPUSCULAR VOLUME 88 fL (80-99); MEAN PLATELET VOLUME 11.2 fL (9.0-12.2); MONOCYTES # (AUTO) 0.7 10^3/uL (0.0-1.0); MONOCYTES % (AUTO) 3 % (0-12); NEUTROPHILS # (AUTO) 18.4 10^3/uL (1.8-7.8); NEUTROPHILS % (AUTO) 89 % (42-75); PLATELET COUNT 309 10^3/uL (130-400); WHITE BLOOD COUNT 20.8 10^3/uL (4.3-11.0)
[2022-06-28 05:48] LABS: POTASSIUM 4.1 MMOL/L (3.6-5.0)
[2022-06-28 05:49] LABS: CALCIUM 8.8 MG/DL (8.5-10.1)
[2022-06-28 05:54] LABS: CREATININE SERUM 0.98 MG/DL (0.60-1.30)
[2022-06-28] MEDS: PIPERACILLIN SODIUM/TAZOBACTAM 4.5 GM in NS (IVPB) 100 ML IV SCH ×3 (07:33→23:13)
[2022-06-28] MEDS ORDERED: PROMETHAZINE INJ 25 MG/ML (PHENERGAN) AMP IVP PRN (11:30)
[2022-06-28] MEDS ORDERED: IBUP-2473 PO (12:53)
[2022-06-28] MEDS ORDERED: SIME125C PO (12:53)
[2022-06-28] MEDS ORDERED: AMOX1TAB12 PO (12:53)
[2022-06-28] MEDS ORDERED: BUP/EPI 0.5% 1:200,000 (SENSORCAINE) 30 ML VIAL ONE (15:09)
[2022-06-28] MEDS ORDERED: fentaNYL INJ 100 MCG/2 ML AMP ONE ×2 (16:43→19:58)
[2022-06-28] MEDS ORDERED: LIDOCAINE PF 2% 5 ML (XYLOCAINE) VIAL ONE (16:43)
[2022-06-28] MEDS ORDERED: MIDAZOLAM 2 MG/2 ML (VERSED) VIAL ONE (16:43)
[2022-06-28] MEDS ORDERED: ROCURONIUM 50 MG/5 ML (ZEMURON) VIAL IV ONE (16:43)
[2022-06-28] MEDS ORDERED: proPOfol 200 MG/20 ML (DIPRIVAN) VIAL IV ONE (16:43)
[2022-06-28] MEDS: LACTATED RINGERS 1,000 ML IV PRN ×2 (17:55→19:01)
[2022-06-28] MEDS ORDERED: ONDANSETRON 4 MG/2 ML (SDV) Z0FRAN ONE (18:48)
[2022-06-28] MEDS ORDERED: GLYCOPYRROLATE 0.2 MG/ML (ROBINUL) 2 ML VIAL ONE (19:37)
[2022-06-28] MEDS ORDERED: NEOSTIGMINE (BLOXIVERZ ) 1 MG/1ML 10 ML VIAL ONE (19:37)
[2022-06-28] MEDS ORDERED: SUCCINYLCHOLINE INJ 20 MG/1 ML 10 ML VIAL ONE (19:45)
[2022-06-28] MEDS ORDERED: SEVOFLURANE (ULTANE) 15 ML INHAL SOLN ONE (19:52)
--- NOTE | 2022-06-28 20:26 | Anesthesia-General Post-Op ---
General Patient Condition Mental Status/LOC: Same as Preop Cardiovascular: Satisfactory Nausea/Vomiting: Absent Respiratory: Satisfactory Pain: Controlled Complications: Absent Post Op Complications Complications None Follow Up Care/Instructions Patient Instructions None needed. Anesthesia/Patient Condition Patient Condition Patient is awake in ICU for PACU and doing well, no complaints, stable vital signs, no apparent adverse anesthesia problems. No complications reported per nursing. RENA TOTH DO June 28, 2022 20:26
[2022-06-28] MEDS ORDERED: HYDROmorphone 2 MG/ML VIAL (DILAUDID) IV ONE (20:30)
[2022-06-28] MEDS ORDERED: ONDANSETRON 4 MG/2 ML (SDV) Z0FRAN IVP PRN (20:30)
[2022-06-28] MEDS ORDERED: morphine INJ 10 MG/ML 1ML (SYR OR VIAL) IVP ONE (20:30)
--- NOTE | 2022-06-28 20:44 | Discharge Inst-Surgical ---
D/C Lap Instructions-BROOKE New, Converted, or Re-Newed RX: RX on Chart Follow Up Appt in 1 week Activity as tolerated No driving for 24 hours No driving while on pain medications Incentive Spirometry use every 2 hours while awake Regular Diet Symptoms to Report: Fever over 101 degree F, Nausea/Vomiting Infection Signs and Symptoms to report: Increased redness, Foul odor of wound, Increased drainage Bathing instructions: May shower Operative Area Clean/Dry; Keep incision clean/dry If any problems/questions: Contact your physician or go to Emergency Room BRAYDON COX MD June 28, 2022 20:44
--- NOTE | 2022-06-28 20:46 | Progress Note-Post Operative ---
Post-Operative Progess Note Surgeon (s)/Core Drier (s) Surgeon BRAYDON COX MD Core Drier: montserrat kumar [employer] Pre-Operative Diagnosis acute appendicitis Post-Operative Diagnosis acute contained appendiceal perforation. Procedure & Operative Findings Date of Procedure 06/28/22 Procedure Performed/Findings laparoscopic appendectomy Anesthesia Type get Estimated Blood Loss Estimated blood loss (mL): minimal Specimens/Packing Specimens Removed appendix BRAYDON COX MD June 28, 2022 20:46
[2022-06-28] MEDS ORDERED: ACETAMINOPHEN 325 MG TABLET PO PRN (22:15)
[2022-06-29] MEDS: HYDROmorphone 2 MG/ML VIAL (DILAUDID) IV PRN (02:25)
--- NOTE | 2022-06-29 03:01 | OPERATIVE REPORT ---
DATE OF SERVICE: 06/28/2022 PREOPERATIVE DIAGNOSIS: Acute noncomplicated appendicitis. POSTOPERATIVE DIAGNOSIS: Acute contained appendiceal perforation. PROCEDURE: Laparoscopic appendectomy. SURGEON: Bryanna Cox MD METAL FABRICATOR APPRENTICE: Charlie Preston APRN ANESTHESIA: General endotracheal. ESTIMATED BLOOD LOSS: Minimal. FINDINGS: Acute contained appendiceal perforation. DISPOSITION: The patient tolerated the procedure well. INDICATIONS: The patient is a 41-year-old male who presented initially with a 1-day history of right lower abdominal quadrant pain and an initial CT was performed, which did not show any abnormalities and the working diagnosis was mesenteric adenopathy and he was started on Augmentin. The pain persisted over time and then worsened. He also reported some nausea; however, no vomiting. He also may have had some mild fevers at home. On the following day, a CT scan in the emergency department was done, which did show inflammation of the appendix; however, no perforation consistent with a noncomplicated appendicitis. The patient was admitted, started on IV hydration with fluids as well as IV antibiotics, pain control, and clear liquid diet. DESCRIPTION OF PROCEDURE: The patient was brought to the operating room, laid supine on the table. After adequate IV pain and sedative medications and general endotracheal intubation, the abdomen was prepped and draped in standard surgical fashion. A 0.5% Marcaine with epinephrine was then used to anesthetize the overlying skin in the left upper abdominal quadrant and transverse skin incision made using a #15 blade. An 0 silk suture was applied to the medial aspect of the incision for retraction and Veress needle inserted with low opening pressure of 0 mmHg. The abdomen was then insufflated to 15 mmHg pressure. The Veress needle removed and a 5 mm XL trocar placed followed by a 5 mm 45-degree angle laparoscope visualized the peritoneal cavity. A 4-quadrant abdominal exploration was performed. There was an inflammatory phlegmon in the right lower abdominal quadrant as well as free fluid within the pelvis. Under direct visualization, we then proceeded to place a supraumbilical 10 mm port after the skin and peritoneal lining were anesthetized using 0.5% Marcaine with epinephrine and a transverse skin incision made using a #15 blade. In a similar manner, a suprapubic 5 mm port was placed. The patient was then placed in reverse Trendelenburg position as well as plane right side up, left side down. The omentum was then retracted superiorly and the appendix was identified and dissected out. A contained perforation was identified. We proceeded with gentle dissection of appendix to the cecal base. The appendix and mesoappendix were then stapled and transected with a CELESTINE-45 mm stapler with a 2.5 mm thickness load with visualization of good hemostasis. This area was then copiously irrigated and suctioned out with visualization of good hemostasis. The pelvis was then irrigated and suctioned out as well. A 19-Italian Geoffrey-Norton drain was then placed into the pelvis as well as in the right lower abdomen near the previous site of the appendix and brought out the left upper abdomen 5 mm port and sutured to the skin using 3-0 nylon suture. The appendix was removed through the 10 mm port site and the fascia and peritoneum to the 10 mm port were then closed using a 0 Vicryl suture on a UR needle. The abdomen was desufflated and remaining ports removed. All skin incisions were closed using 4-0 Monocryl running subcuticular suture. Wounds were then cleaned and covered with Dermabond. The patient tolerated the procedure well. We will start IV normal pain medication as well as a clear liquid diet and advance as tolerated and continue with IV antibiotics. Tomorrow, once he is tolerating at least liquids, has adequate pain control with oral pain medication and is ambulating well, we will discharge him home and have him follow up in 1 week to evaluate the drain and possibly remove it. He will also be instructed to do no heavy lifting or exertion for the next 2 weeks. Job ID: [id number] DocumentID: [id number] Dictated Date: 06/28/2022 20:53:36 Fish Packer Date: 06/29/2022 02:58:00 Dictated By: BRYANNA COX MD
[2022-06-29 03:20] VITALS: BP 118/60
[2022-06-29 07:45] VITALS: BP 120/85
[2022-06-29] MEDS: NICOTINE 14 MG (NICODERM) PATCH TD SCH (08:29)
[2022-06-29] MEDS: PIPERACILLIN SODIUM/TAZOBACTAM 4.5 GM in NS (IVPB) 100 ML IV SCH (08:29)
[2022-06-29] MEDS: NS IV 1000 ML 1,000 ML IV SCH (10:48)
[2022-06-29 11:28] VITALS: BP 118/80
--- NOTE | 2022-06-29 11:58 | Progress Note ---
Subjective Date Seen by a Provider: June 29, 2022 Time Seen by a Provider: 11:50 Subjective/Events-last exam Patient seen with Dr. Damian. Patient reports doing well. Minimal abdominal pain. No nausea or vomiting. Tolerating clear liquids. Ambulating. Objective Exam Vital Signs Date Time Temp Pulse Resp B/P (MAP) Pulse Ox O2 Delivery O2 Flow Rate FiO2 06/29/22 11:28 36.5 100 18 118/80 (93) 95 Room Air 06/29/22 08:30 Room Air 06/29/22 07:45 36.6 105 18 120/85 (97) 94 Room Air 06/29/22 03:20 36.3 106 18 118/60 (79) 95 Nasal Cannula 2.00 06/28/22 23:07 36.8 106 18 121/77 (92) 98 Nasal Cannula 2.00 06/28/22 22:06 37.0 110 18 118/66 (83) 96 Nasal Cannula 2.00 06/28/22 21:15 38.2 123 20 115/78 (90) 93 OxyMask 2.00 06/28/22 21:05 OxyMask 2.00 06/28/22 21:05 37.8 22 131/86 (101) 93 OxyMask 2.00 06/28/22 21:05 Room Air 06/28/22 21:00 20 132/84 (100) 93 OxyMask 2.00 06/28/22 20:55 OxyMask 2.00 06/28/22 20:50 22 128/86 (100) 93 OxyMask 2.00 06/28/22 20:49 Room Air 06/28/22 20:43 OxyMask 2.00 06/28/22 20:40 22 134/89 (104) 95 OxyMask 5.00 06/28/22 20:38 OxyMask 6.00 06/28/22 20:38 22 96 OxyMask 5.00 06/28/22 20:30 22 146/94 (111) 95 OxyMask 6.00 06/28/22 20:30 OxyMask 6.00 06/28/22 20:20 22 136/81 (99) 95 OxyMask 6.00 06/28/22 20:15 37.0 24 121/78 (92) 94 OxyMask 6.00 06/28/22 20:15 OxyMask 6.00 06/28/22 17:13 36.7 125 17 114/80 (91) 96 Nasal Cannula 1.00 06/28/22 16:02 36.8 128 20 125/88 (100) 92 Room Air I & O 06/29/22 07:00 Intake Total 2470 ml Output Total 1350 ml Balance 1120 ml Capillary Refill : Less Than 3 Seconds General Appearance: No Apparent Distress, WD/WN Neck: Normal Inspection, Supple Respiratory: No Accessory Muscle Use, No Respiratory Distress Gastrointestinal: normal bowel sounds, soft, tenderness, other (EZEQUIEL drain with SS drainage) Extremity: Normal Inspection, Normal Range of Motion Neurologic/Psychiatric: Alert, Oriented x3 Skin: Normal Color, Warm/Dry, Other (Abdominal incisions C/D/I with no signs of infection) Assessment/Plan Assessment/Plan Assess & Plan/Chief Complaint A 41 year old male with acute appendicitis who is S/P lap appy and placement of EZEQUIEL drain VSS Tolerating diet - will advance to regular Pain controlled If patient tolerates diet, then will DC home with abx and pain meds. Patient instructed to follow up next week in office. FLAKITA GARCIA LEAD CASTER June 29, 2022 11:58
== END 2022-06-29 14:30 | disposition home or self-care (01) ==
LOC: EDUNIT# 15:00 → ER 15:01 → INTOOBSV 18:00 → 4TH 18:00 → UNDOADMOB 18:00 → 4TH 18:06 → UNDODISOB 06-29 14:30
PROVIDERS: ADMIT Surgery; ATTEND Surgery
DX: K35.32 Acute appendicitis with perforation, localized peritonitis, and gangrene, without abscess (principal); G95.89 Other specified diseases of spinal cord; I10 Essential (primary) hypertension; Z79.891 Long term (current) use of opiate analgesic; Z79.899 Other long term (current) drug therapy
CPT/HCPCS: 44970; 74177; 80048; 80053; 82150; 83690; 85007; 85025; 85027; 86141; 88304; 96366 ×2; 96374; 96375 ×3; 96376 ×4; 99284; G0378; 36415